=== PATIENT | male | born 1990 | race Caucasian/White ===

== ENCOUNTER 2018-05-04 16:47 | Emergency (ER) | payer MEDICAID ==
[~2018-05-04] VITALS: Ht 177.8 cm; Wt 108.9 kg
[2018-05-04 17:02] VITALS: Ht 177.8 cm; Wt 108.9 kg
[2018-05-04 17:36] LABS: BASOPHIL % 0.5 % (0-2); PLATELET COUNT 260 x10^3mcL (130-400); RED CELL DISTRIBUTION WIDTH 13.4 % (11.5-14.5)
[2018-05-04 17:46] LABS: CALCIUM 8.8 mg/dL (8.5-10.1); CARBON DIOXIDE 29.9 mmol/L (21-32); CHLORIDE SERUM 104 mmol/L (98-107); CREATININE SERUM 0.9 mg/dL (0.7-1.3); GFR1 > 60 mL/min; GLUCOSE SERUM 116 mg/dL (74-106); POTASSIUM SERUM 3.8 mmol/L (3.5-5.1); SODIUM SERUM 138 mmol/L (136-145)
[2018-05-04 17:50] LABS: ALBUMIN 4.1 g/dL (3.4-5.0); ALKALINE PHOSPHATASE 102 U/L (46-116); ALT/SGPT 52 U/L (16-63); AST/SGOT 24 U/L (15-37); BILIRUBIN TOTAL 0.33 mg/dL (0.20-1.00); MAGNESIUM 1.8 mg/dL (1.8-2.4); TOTAL PROTEIN, SERUM 7.8 g/dL (6.4-8.2)
[2018-05-04 17:51] LABS: AMPHETAMINE QUAL UR NONE DETECTED (See below)
[2018-05-04 17:57] LABS: FREE T4 1.13 ng/dL (0.76-1.46); T4(THYROXINE) 8.8 ug/dL (4.7-13.3)
[2018-05-04 18:27] LABS: T3 TOTAL 1.07 ng/mL
[2018-05-04 21:10] VITALS: BP 144/59
== END 2018-05-04 21:10 | disposition home or self-care (01) ==
LOC: ED 16:47
PROVIDERS: Emergency Medicine
DX: R00.2 Palpitations (principal); R51 Headache
CPT/HCPCS: 36415; 84439; Q0092

== ENCOUNTER 2019-02-23 20:29 | Emergency (ER) | payer SELFPAY ==
[~2019-02-23] VITALS: Ht 175.3 cm; Wt 78.6 kg
[2019-02-23 20:32] VITALS: Ht 175.3 cm; Wt 78.6 kg
[2019-02-24 00:38] VITALS: BP 126/67
== END 2019-02-24 00:38 | disposition home or self-care (01) ==
LOC: ED 20:29
DX: J06.9 Acute upper respiratory infection, unspecified (principal); H61.22 Impacted cerumen, left ear